=== PATIENT | female | born 1960 | race African-American/Black ===

== ENCOUNTER 2022-06-29 13:53 | Emergency (ER) | payer MEDICAID ==
[~2022-06-29] VITALS: Ht 175.3 cm; Wt 68.0 kg
[2022-06-29 17:20] LABS: BASOPHILS % 0.4 % (0.0-2.0); EOSINOPHILS % 2.8 % (0.0-5.0); HEMATOCRIT. 36.8 % (36.0-48.0); LYMPHOCYTES % 39.7 % (20.0-50.0); MEAN CORPUSCULAR HEMOGLOBIN 28.3 pg (28.0-32.0); MEAN CORPUSCULAR VOLUME 86.7 fL (81.0-99.0); MEAN PLATELET VOLUME 9.2 fl (7.4-10.4); MONOCYTES % 8.6 % (2.0-8.0); NEUTROPHILS % 48.5 % (40.0-76.0); PLATELET 191 x1000/uL (130-400); RED BLOOD CELL COUNT 4.25 mill/uL (4.2-5.4); RED CELL DISTRIBUTION WIDTH 13.5 % (11.6-14.6)
[2022-06-29 17:36] LABS: CHLORIDE 108 mEq/L (98-107)
[2022-06-29 18:30] VITALS: BP 112/78
== END 2022-06-29 18:30 | disposition home or self-care (01) ==
LOC: ER 14:07
DX: R20.0 Anesthesia of skin (principal); I49.8 Other specified cardiac arrhythmias
CPT/HCPCS: 36415; 80053; 82962; 85025; 93005; 99284

== ENCOUNTER 2022-11-05 01:43 | Emergency (ER) | payer OTHER ==
[~2022-11-05] VITALS: Ht 175.3 cm; Wt 70.0 kg
[2022-11-05] MEDS ORDERED: KETOROLAC 60MG/2ML VIAL IM STA (05:15)
[2022-11-05 05:34] VITALS: BP 172/93
[2022-11-05] MEDS ORDERED: IBUP-2028 MT (06:47)
== END 2022-11-05 06:57 | disposition home or self-care (01) ==
LOC: ER 01:43
DX: R51.9 Headache, unspecified (principal)
CPT/HCPCS: 70450; 96372; 99284; J1885